=== PATIENT | female | born 1955 | race Caucasian/White ===

== ENCOUNTER → 2017-07-23 | Outpatient (CLI) | payer OTHER ==
[~2017-07-23] MED LIST: ANA1 PO
--- NOTE | 2017-07-23 15:17 | RADIOLOGY IMAGING REPORT ---
FACILITY: [facility] PATIENT NAME: JOLENE JOAQUIN : [id number] MR: [id number] V: [id number] EXAM DATE: [id number] ORDERING PHYSICIAN: CARLITOS HOOD TECHNOLOGIST: Noemi Zepeda PROCEDURE: MAMMOGRAM SCREENING LEFT UNILATERAL WITH CAD ASSISTED INTERPRETATION & 3D TOMOSYNTHESIS COMPARISON: Prior mammograms 07/20/16, 07/06/16, 07/04/15, 07/02/14, 03/30/11. INDICATIONS: screening FINDINGS: A moderate amount of fibroglandular tissue is seen throughout the left breast. The parenchymal pattern has remained stable allowing for difference in mammographic technique & patient positioning. There is no evidence of malignant appearing mass, malignant appearing calcifications or other secondary sign of malignancy in the left breast. DIAGNOSTIC CATEGORY 1--NEGATIVE. RECOMMENDATIONS: ROUTINE MAMMOGRAM AND CLINICAL EVALUATION. IMPRESSION: BIRADS 1: Negative No significant abnormality of the left breast is seen Dictated by: Janna Costello M.D. on 07/23/2017 at 14:39 Transcribed by: AMAN on 07/23/2017 at 14:57 Approved by: Janna Costello M.D. on 07/23/2017 at 15:16 [facility]
== END ==
LOC: MAMO 04:35
PROVIDERS: ATTEND Family Medicine
DX: Z12.31 Encounter for screening mammogram for malignant neoplasm of breast (principal)
CPT/HCPCS: 77063; 77067

== ENCOUNTER → 2018-08-12 | Outpatient (CLI) | payer OTHER ==
--- NOTE | 2018-08-15 09:53 | RADIOLOGY IMAGING REPORT ---
FACILITY: [facility] [place] PATIENT NAME: JOLENE JOAQUIN : [id number] MR: [id number] V: [id number] EXAM DATE: [id number] ORDERING PHYSICIAN: CARLITOS HOOD TECHNOLOGIST: Vivienne Castro PROCEDURE: MAMMOGRAM SCREENING LEFT UNILATERAL WITH CAD ASSISTED INTERPRETATION & 3D TOMOSYNTHESIS COMPARISON: Prior Left mammograms 07/23/17, 07/20/16, 07/06/16, 07/04/15, 07/02/14. INDICATIONS: SCREENING FINDINGS: There are scattered areas of fibroglandular density seen throughout the Left breast. The parenchymal pattern has remained stable allowing for difference in mammographic technique & patient positioning. DIAGNOSTIC CATEGORY 1--NEGATIVE. RECOMMENDATIONS: ROUTINE MAMMOGRAM AND CLINICAL EVALUATION. IMPRESSION: BIRADS 1: Negative. No significant abnormality of the Left breast is seen. Dictated by: Janna Costello M.D. on 08/12/2018 at 15:29 Transcribed by: AMNA on 08/12/2018 at 15:56 Approved by: Janna Costello M.D. on 08/15/2018 at 9:52 [facility]
== END ==
LOC: MAMO 02:09
PROVIDERS: ATTEND Family Medicine
DX: Z12.31 Encounter for screening mammogram for malignant neoplasm of breast (principal)
CPT/HCPCS: 77063; 77067

== ENCOUNTER 2018-08-25 02:27 | Day surgery (SDC) | payer OTHER ==
[~2018-08-25] VITALS: Ht 170.2 cm; Wt 78.9 kg
[~2018-08-25 02:27] MED LIST changes: +LEVO-3 PO
[2018-08-25] MEDS ORDERED: LIDOCAINE MPF 1% 5 ML VIAL ONE (09:29)
[2018-08-25] MEDS ORDERED: PROPOFOL EMUL(*) 10MG/ML 20 ML 40 ML ONE (09:29)
[2018-08-25] MEDS ORDERED: NORMOSOL R SOLN(*) 1000 ML BAG 1,000 ML IV PRN (09:40)
[2018-08-25] MEDS ORDERED: LIDOCAINE/SOD BICARB 8.4% SYR ID ONE (09:40)
[2018-08-25 09:49] VITALS: BP 113/72
[2018-08-25 10:58] VITALS: BP 93/60
[2018-08-25 11:30] VITALS: BP 91/59
[2018-08-25 11:40] VITALS: BP 92/69
[2018-08-25 11:42] VITALS: BP 103/68
== END 2018-08-25 11:59 | disposition home or self-care (01) ==
LOC: OR 02:27
PROVIDERS: ATTEND Family Medicine
DX: Z12.11 Encounter for screening for malignant neoplasm of colon (principal); Z80.0 Family history of malignant neoplasm of digestive organs
CPT/HCPCS: 00811; 45380; 88305; J2001; J2704